=== PATIENT | female | born 1985 | race Caucasian/White ===

== ENCOUNTER 2017-04-12 16:01 | Emergency (ER) | payer OTHER ==
--- NOTE | 2017-04-12 17:03 | PDOC ---
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
[2017-04-12 17:08] VITALS: BP 121/50; PULSE 73; TEMP 98; BMI 41.5
[2017-04-12 18:14] LABS: BASO % 0.4 % (0-2.0); EOS % 1.7 % (0-4.5); HEMATOCRIT 40.4 % (32.4-45.2); HEMOGLOBIN 13.5 GM/dL (10.7-15.3); LYMPH % 35.3 % (8-40); MCHC 33.5 g/dl (32.0-36.0); MEAN CELL VOLUME 86.7 fl (80-96); MEAN PLT VOLUME 8.4 fl (7.5-11.1); MONO % 11.4 % (3.8-10.2); NEUT % 51.2 % (42.8-82.8); PLATELET COUNT 258 K/MM3 (134-434); RBC 4.66 M/mm3 (3.60-5.2); RDW 13.7 % (11.6-15.6)
[2017-04-12 18:18] LABS: URINE APPEARANCE CLOUDY; URINE BILIRUBIN NEGATIVE (NEGATIVE); URINE BLOOD 3+ (NEGATIVE); URINE COLOR YELLOW; URINE GLUCOSE (UA) NEGATIVE (NEGATIVE); URINE KETONE TRACE (NEGATIVE); URINE LEUK ESTERASE NEGATIVE (NEGATIVE); URINE NITRITE NEGATIVE (NEGATIVE)
[2017-04-12 18:23] LABS: URINE PROTEIN 1+ (NEGATIVE)
--- NOTE | 2017-04-12 18:27 | PDOC ---
History of Present Illness - General History Source: Patient, Friend Exam Limitations: No Limitations - History of Present Illness Initial Comments: 04/12/17 18:30 The patient is a 5 week 31 year old female , with a significant past medical history of normal spontaneous vaginal delivery and , who presents to the emergency department with, approx. one day of vaginal bleeding. The patient reports that beginning last night and today she has been having mild vaginal bleeding with little clots. The patient reports she did not have any history of vaginal bleeding during her past pregnancies. 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 She denies recent fevers, chills, headache or dizziness. She denies recent nausea, vomit, diarrhea or constipation. She denies recent dysuria, frequency, urgency. She denies recent chest pain or shortness of breath. Allergies: NKA Past surgical history: <Alfie Mcrae - Last Filed: 04/12/17 18:43> <Aurora Mahmood - Last Filed: 04/12/17 20:12> - General Chief Complaint: Vaginal Bleeding Stated Complaint: VAGINAL BLEEDING Time Seen by Provider: 04/12/17 16:59 Past History <Alfie Mcrae - Last Filed: 04/12/17 18:43> - Past Medical History CVA: No COPD: No DVT: No Dementia: No Diabetes: No Hypercholesterolemia: Yes - Immunization History Immunization Up to Date: Yes - Suicide/Smoking/Psychosocial Hx Smoking History: Never smoked Have you smoked in the past 12 months: No Information on smoking cessation initiated: No Hx Alcohol Use: No Drug/Substance Use Hx: No Substance Use Type: None <Aurora Mahmood - Last Filed: 04/12/17 20:12> - Past Medical History Allergies/Adverse Reactions: Allergies Allergy/AdvReac Type Severity Reaction Status Date / Time No Known Allergies Allergy Verified 04/12/17 17:00 Review of Systems - Review of Systems Comments:: 04/12/17 18:34 GENERAL/CONSTITUTIONAL: No fever or chills. No weakness. HEAD, EYES, EARS, NOSE AND THROAT: No change in vision. No ear pain or discharge. No sore throat. GASTROINTESTINAL: No nausea, vomiting, diarrhea or constipation. GENITOURINARY: +Mild vaginal bleeding. No dysuria, frequency, or change in urination. CARDIOVASCULAR: No chest pain or shortness of breath. RESPIRATORY: No cough, wheezing, or hemoptysis. MUSCULOSKELETAL: No joint or muscle swelling or pain. No neck or back pain. SKIN: No rash NEUROLOGIC: No headache, vertigo, loss of consciousness, or change in strength/ sensation. ENDOCRINE: No increased thirst. No abnormal weight change. HEMATOLOGIC/LYMPHATIC: No anemia, easy bleeding, or history of blood clots. ALLERGIC/IMMUNOLOGIC: No hives or skin allergy. <Alfie Mcrae - Last Filed: 04/12/17 18:43> *Physical Exam - Vital Signs Last Vital Signs Temp Pulse Resp BP Pulse Ox 98.0 F 73 16 121/50 98 04/12/17 17:00 04/12/17 17:00 04/12/17 17:00 04/12/17 17:00 04/12/17 17:00 - Physical Exam Comments: 04/12/17 18:35 Constitutional: Awake, alert, oriented. No acute distress. Head: Normocephalic. Atraumatic Eyes: PERRL. EOMI. Conjunctivae are not pale. ENT: Mucous membranes are moist and intact. Posterior pharynx without exudates or erythema. Uvula midline. Neck: Supple. Full ROM. No lymphadenopathy. Cardiovascular: Regular rate. Regular rhythm. S1, S2 regular. Distal pulses are 2+ and symmetric. Pulmonary/Chest: No evidence of respiratory distress. Clear to auscultation bilaterally No wheezing, rales or rhonchi. Abdominal: +Suprapubic tenderness. Soft and non-distended. No rebound, guarding or rigidity. No organomegaly. No palpable masses. Good bowel sounds. Pelvic: +Blood in valut. No clots. +Minimal blood from cervix. No cmt or adnexal tenderness. Back: No CVA tenderness. Musculoskeletal: No edema. No cyanosis. No clubbing. Full range of motion in all extremities. Nocalf tenderness. Radial/pedal pulses are intact and 2+ bilaterally Skin: Skin is warm and dry. No petechiae. No purpura. Neurological: Alert and oriented to person, place, and time. Cranial nerves II -XII are grossly intact. Normal speech. Strength is grossly symmetric. No sensory deficits. Psychiatric: Good eye contact. Normal interaction, affect and behavior. <Alfie Mcrae - Last Filed: 04/12/17 18:43> - Vital Signs Last Vital Signs Temp Pulse Resp BP Pulse Ox 98.0 F 73 16 121/50 98 04/12/17 17:00 04/12/17 17:00 04/12/17 17:00 04/12/17 17:00 04/12/17 17:00 <Aurora Mahmood - Last Filed: 04/12/17 20:12> ED Treatment Course - LABORATORY CBC & Chemistry Diagram: 04/12/17 17:55 04/12/17 17:55 - ADDITIONAL ORDERS Additional order review: Laboratory Results 04/12/17 17:55 Urine Color Yellow Urine Appearance Cloudy Urine pH 5.0 Ur Specific [place] 1.029 Urine Protein 1+ H Urine Glucose (UA) Negative Urine Ketones Trace H Urine Blood 3+ H Urine Nitrite Negative Urine Bilirubin Negative Urine Urobilinogen 2.0 H Ur Leukocyte Esterase Negative 04/12/17 17:55 RBC 4.66 MCV 86.7 MCHC 33.5 RDW 13.7 MPV 8.4 Neutrophils % 51.2 Lymphocytes % 35.3 Monocytes % 11.4 H Eosinophils % 1.7 Basophils % 0.4 <Alfie Mcrae - Last Filed: 04/12/17 18:43> - LABORATORY CBC & Chemistry Diagram: 04/12/17 17:55 04/12/17 17:55 - ADDITIONAL ORDERS Additional order review: Laboratory Results 04/12/17 17:55 Urine Color Yellow Urine Appearance Cloudy Urine pH 5.0 Ur Specific [place] 1.029 Urine Protein 1+ H Urine Glucose (UA) Negative Urine Ketones Trace H Urine Blood 3+ H Urine Nitrite Negative Urine Bilirubin Negative Urine Urobilinogen 2.0 H Ur Leukocyte Esterase Negative 04/12/17 17:55 RBC 4.66 MCV 86.7 MCHC 33.5 RDW 13.7 MPV 8.4 Neutrophils % 51.2 Lymphocytes % 35.3 Monocytes % 11.4 H Eosinophils % 1.7 Basophils % 0.4 <Aurora Mahmood - Last Filed: 04/12/17 20:12> Medical Decision Making - Medical Decision Making 04/12/17 18:26 a/p: 31yo female with vaginal bleeding since last night - worsening today - at about 5 weeks -will start threatened ab workup -labs, type and screen, tv u/s -nontoxic appearing. -will monitor and reassess -suprapubic discomfort - ua 04/12/17 20:10 re-eval: pt states feeling better discussed lab and imaging results discussed beta hcg and ultrasound showing gestational sac without pole discussed this could be seen in early vs spontaneous ab discussed that the patient needs a repeat beta hcg in 48 hours discussed heavy bleeding and all reasons to return to the ED discussed need for repeat pelvic u/s in 1 week discussed need for follow up with ENTRY LEVEL DRAFTER at the clinic discussed vitamins pt stable for d/c to home type and screen: O+ <Aurora Mahmood - Last Filed: 04/12/17 20:12> *DC/Admit/Observation/Transfer - Attestations Scribe Attestion: 04/12/17 18:36 Documentation prepared by Alfie Mcrae, acting as phlebotomist medical lab assistant for Aurora Mahmood DO. <Alfie Mcrae - Last Filed: 04/12/17 18:43> - Discharge Dispostion Admit: No - Attestations Physician Attestion: 04/12/17 20:04 I, Dr. Aurora Mahmood, , attest that this document has been prepared under my direction and personally reviewed by me in its entirety. I further attest, that it accurately reflects all work, treatment, procedures and medical decision -making performed by me. <Aurora Mahmood - Last Filed: 04/12/17 20:12> Diagnosis at time of Disposition: Vaginal bleeding during , Threatened - Discharge Dispostion Disposition: HOME Condition at time of disposition: Stable - Referrals Referrals: Dennis Sanchez MD [Staff Physician] - - Patient Instructions Printed Discharge Instructions: DI for Threatened Additional Instructions: Please buy and start taking vitamins. Your Beta HCG was 529 today. Your ultrasound showed a gestation sac without a pole. Please have your beta hcg repeated here at [facility] in 48 hrs. Please make an appointment to see your ENTRY LEVEL DRAFTER. Please return to the ED if the bleeding worsens or your have any concerns. Please practice pelvic rest as discussed. - Post Discharge Activity Forms/Work/School Notes: Back to Work
[2017-04-12 18:28] LABS: EPI CELLS RARE /HPF (FEW); URINE BACTERIA RARE /hpf (NONE SEEN); URINE MUCUS RARE
[2017-04-12 18:55] LABS: ALBUMIN 3.9 g/dl (3.4-5.0); ANION GAP 6 (8-16); BILIRUBIN,TOTAL 0.3 mg/dL (0.2-1.0); BLOOD UREA NITROGEN 14 mg/dL (7-18); CALCIUM 8.5 mg/dL (8.5-10.1); CHLORIDE 105 mmol/L (98-107); CO2 27 mmol/L (21-32); CREATININE 0.6 mg/dL (0.55-1.02); GLUCOSE,RANDOM 77 mg/dL (74-106); POTASSIUM 3.7 mmol/L (3.5-5.1); SGOT/AST 12 U/L (15-37); SGPT/ALT 28 U/L (12-78); SODIUM 138 mmol/L (136-145); TOT PROT 7.9 g/dl (6.4-8.2)
[2017-04-12 18:57] LABS: ALK PHOS 68 U/L (45-117)
== END 2017-04-12 20:32 | disposition home or self-care (01) ==
LOC: JER 16:01
DX: O26.891 Other specified pregnancy related conditions, first trimester (principal); O20.0 Threatened abortion; Z3A.01 Less than 8 weeks gestation of pregnancy
CPT/HCPCS: 36415; 76817-TC; 80053; 81003; 81015; 84702; 85025; 86850; 86900; 86901; 87086; 99283-25

== ENCOUNTER 2017-04-14 10:44 | Emergency (ER) | payer OTHER ==
[2017-04-14 10:51] VITALS: BMI 25.6
--- NOTE | 2017-04-14 11:30 | PDOC ---
History of Present Illness - General Chief Complaint: [facility] [place] Stated Complaint: REVISIT Time Seen by Provider: 04/14/17 11:03 History Source: Patient Exam Limitations: No Limitations - History of Present Illness Initial Comments: 04/14/17 11:59 Return for repeat beta hCG. Was seen here 2 days ago for abdominal pain and bleeding. Was known 5 weeks again spotting 2 days before that. Found to have a beta hCG of 539, and endometrial sac in the canal possibly representing an ectopic . Patient reports has less pain however still has some pain in her left lower flank, no bleeding, no fevers . 04/14/17 12:02 04/14/17 12:03 Timing/Duration: unsure Severity: mild Associated Symptoms: reports: denies symptoms Past History - Travel Traveled outside of the country in the last 30 days: No Close contact w/someone who was outside of country & ill: No - Past Medical History Allergies/Adverse Reactions: Allergies Allergy/AdvReac Type Severity Reaction Status Date / Time No Known Allergies Allergy Verified 04/14/17 10:47 Home Medications: Ambulatory Orders NK [No Known Home Medication] 04/14/17 CVA: No COPD: No DVT: No Dementia: No Diabetes: No Hypercholesterolemia: Yes - Immunization History Immunization Up to Date: Yes - Suicide/Smoking/Psychosocial Hx Smoking History: Never smoked Have you smoked in the past 12 months: No Hx Alcohol Use: No Drug/Substance Use Hx: No Substance Use Type: None Review of Systems - Review of Systems Able to Perform ROS?: Yes Is the patient limited Citizen [place] proficient: Yes Constitutional: Yes: Symptoms Reported, See HPI, Malaise. No: Fever HEENTM: Yes: See HPI. No: Symptoms Reported Respiratory: No: Symptoms reported : Yes: See HPI. No: Symptoms Reported Musculoskeletal: Yes: See HPI. No: Symptoms Reported All Other Systems: Reviewed and Negative *Physical Exam - Vital Signs Last Vital Signs Temp Pulse Resp BP Pulse Ox 98.4 F 70 20 117/70 98 04/14/17 10:47 04/14/17 10:47 04/14/17 10:47 04/14/17 10:47 04/14/17 10:47 - Physical Exam General Appearance: Yes: Nourished, Appropriately Dressed. No: Apparent Distress HEENT: positive: KAVIN, Normal ENT Inspection, TMs Normal, Pharynx Normal Neck: positive: Supple. negative: Tender Respiratory/Chest: positive: Lungs Clear, Normal Breath Sounds Gastrointestinal/Abdominal: positive: Normal Bowel Sounds, Soft. negative: Tender, Distended, Guarding, Rebound Musculoskeletal: positive: Normal Inspection, CVA Tenderness Extremity: positive: Normal Capillary Refill, Normal Range of Motion. negative : Tender Integumentary: positive: Normal Color, Dry, Warm, Pale Neurologic: positive: assessment technician II-XII NML intact, Fully Oriented, Alert, Normal Mood/ Affect, Normal Response, Motor Strength /5 Medical Decision Making - Medical Decision Making 04/14/17 12:55 We'll repeat beta hCG, and obtain repeat ultrasound however patient appears nontoxic, afebrile, with no vaginal bleeding. Due to the reports from first ultrasound will be concerned about worsening ectopic, will review repeat ultrasound and transfer patient to main emergency department for further treatment as indicated after ultrasound reports revealed. Case turned over to Alexandra Theodore NP. Updated to plan 04/14/17 15:26 *DC/Admit/Observation/Transfer Diagnosis at time of Disposition: Threatened , Vaginal bleeding - Discharge Dispostion Disposition: HOME Condition at time of disposition: Stable Admit: No - Referrals Referrals: Kimi Rhoades MD [Staff Physician] - - Patient Instructions Additional Instructions: If any increased bleeding, increased pain, fever, or any other concerns return immediately to emergency room please make sure to follow-up in 2 days. - Post Discharge Activity Forms/Work/School Notes: Back to Work
--- NOTE | 2017-04-14 13:21 | PDOC ---
*Physical Exam - Vital Signs Last Vital Signs Temp Pulse Resp BP Pulse Ox 98.4 F 70 20 117/70 98 04/14/17 10:47 04/14/17 10:47 04/14/17 10:47 04/14/17 10:47 04/14/17 10:47 - Physical Exam General Appearance: Yes: Appropriately Dressed. No: Apparent Distress Respiratory/Chest: positive: Lungs Clear, Normal Breath Sounds Cardiovascular: positive: Regular Rhythm, Regular Rate ED Treatment Course - ADDITIONAL ORDERS Additional order review: Laboratory Results 04/14/17 11:35 Beta HCG, Quant 485.7 Medical Decision Making - Medical Decision Making 04/14/17 13:20 I have received report from Antonio AUDITING CODER regarding this patient. Pt's initial chief complaint: [Vaginal bleeding, abdominal pain r/o ectopic] Pt's work up completed prior to sign out: [ Mela, US] Pt treatment given from prior staff: None Pt plan to be completed: [Awaiting US results] Dispo: [ Pending] 04/14/17 14:21 Repeat ultrasound in comparison to prior ultrasound study of 04/12/2017 there is no longer visualization of 0.3 cm fluid structure within the endometrial canal. Current beta-hCG is 485. I have discussed case with Dr. Rhoades from OB. Recommended no further intervention at this time. Strict follow-up in 2 days for repeat beta and ultrasound, Patient has an appointment on Sunday at the clinic to follow-up., Patient denies any pain, prior to discharge. *DC/Admit/Observation/Transfer Diagnosis at time of Disposition: Threatened , Vaginal bleeding - Discharge Dispostion Disposition: HOME Condition at time of disposition: Stable Admit: No - Referrals Referrals: Kimi Rhoades MD [Staff Physician] - - Patient Instructions Additional Instructions: If any increased bleeding, increased pain, fever, or any other concerns return immediately to emergency room please make sure to follow-up in 2 days. - Post Discharge Activity Forms/Work/School Notes: Back to Work
[2017-04-14 14:59] VITALS: BP 100/68; PULSE 78; TEMP 97.5
== END 2017-04-14 15:00 | disposition home or self-care (01) ==
LOC: JER 10:44 → JERFT 10:44 → JER 15:00
DX: O26.891 Other specified pregnancy related conditions, first trimester (principal); O20.0 Threatened abortion; Z3A.01 Less than 8 weeks gestation of pregnancy
CPT/HCPCS: 36415; 76817-TC; 84702; 99283-25

== ENCOUNTER 2023-01-26 15:03 | Inpatient (IN) | payer OTHER ==
[2023-01-26] MEDS ORDERED: AMPICILLIN SODIUM 2 GM VIAL ONE (15:54)
[2023-01-26 16:11] VITALS: BMI 31.5
[2023-01-26] MEDS ORDERED: ELECTROLYTE-148 SOLN 1,000 ML IV SCH (16:30)
[2023-01-26] MEDS ORDERED: AMPICILLIN SODIUM 2 GM VIAL IVPB ONE (16:30)
[2023-01-26 16:55] LABS: BASO % 0.1 % (0-2.0); EOS % 0.9 % (0-4.5); HEMATOCRIT 38.1 % (32.4-45.2); HEMOGLOBIN 12.8 GM/dL (10.7-15.3); LYMPH % 24.7 % (8-40); MCH 28.2 pg (25.7-33.7); MCHC 33.7 g/dl (32.0-36.0); MEAN CELL VOLUME 83.7 fl (80-96); MEAN PLT VOLUME 9.4 fl (7.5-11.1); MONO % 7.7 % (3.8-10.2); NEUT % 66.6 % (42.8-82.8); PLATELET COUNT 243 10^3/uL (134-434); RBC 4.55 M/mm3 (3.60-5.2); RDW 15.4 % (11.6-15.6)
[2023-01-26 17:08] LABS: INR 0.95 (0.83-1.09)
[2023-01-26 17:11] LABS: ACTIVATED PTT 24.9 SECONDS (25.2-36.5)
[2023-01-26 17:16] LABS: POTASSIUM 3.8 mmol/L (3.5-5.1)
[2023-01-26 17:17] LABS: BLOOD UREA NITROGEN 10.1 mg/dL (7-18); CALCIUM 8.7 mg/dL (8.5-10.1)
[2023-01-26 17:21] LABS: CREATININE 0.5 mg/dL (0.55-1.3)
[2023-01-26] MEDS ORDERED: OXYTOCIN 30 UNITS in 0.9% NS 30 UNIT/500 ML INFUS.BAG IVPB SCH (19:00)
[2023-01-26] MEDS ORDERED: AMPICILLIN SODIUM 1 GM VIAL ONE (20:03)
[2023-01-26] MEDS: AMPICILLIN - 1 GM in SODIUM CHLORIDE 100 ML IVPB SCH (20:05)
[2023-01-26] MEDS ORDERED: OXYTOCIN 30 UNITS in 0.9% NS 30 UNIT/500 ML INFUS.BAG IVPB ONE (20:49)
[2023-01-26 22:47] LABS: HIV INTERPRETATION NEGATIVE (NEGATIVE)
[2023-01-27] MEDS ORDERED: AMPICILLIN SODIUM 1 GM VIAL ONE (00:01)
[2023-01-27] MEDS: AMPICILLIN - 1 GM in SODIUM CHLORIDE 100 ML IVPB SCH (00:05)
[2023-01-27] MEDS ORDERED: FENTANYL/BUPIVACAINE/NS/PF - PCEA - 50 ML DISP.SYRIN EP ONE (00:43)
[2023-01-27] MEDS ORDERED: FENTANYL/BUPIVACAINE/NS/PF - PCEA - 50 ML DISP.SYRIN EP SCH (00:45)
[2023-01-27] MEDS ORDERED: NALOXONE HCL 0.4 MG/ML VIAL IVPUSH PRN (00:45)
[2023-01-27] MEDS ORDERED: FENTANYL CITRATE/PF 50 MCG/ML VIAL ONE (00:50)
[2023-01-27] MEDS ORDERED: BUPIVACAINE HCL/PF 0.25% (2.5MG/ML) 10 ML VIAL ONE (00:51)
[2023-01-27] MEDS ORDERED: LIDOCAINE HCL/EPINEPHRINE/PF 10 ML VIAL ONE (00:54)
[2023-01-27] MEDS ORDERED: LIDOCAINE HCL 1% PRESERVATIVE FREE - 30ML VIAL ONE (01:02)
[2023-01-27] MEDS ORDERED: OXYTOCIN 20 UNITS in 0.9% NS 20 UNIT/1,000 ML INFUS.BAG IV ONE (01:02)
[2023-01-27] MEDS ORDERED: WITCH HAZEL 50% (TUCKS) 40 PAD/JAR PAD TP PRN (01:28)
[2023-01-27] MEDS ORDERED: BISACODYL 10 MG SUPP.RECT RC PRN (01:28)
[2023-01-27] MEDS ORDERED: BENZOCAINE 20% 57 GM BOTTLE TP PRN (01:28)
[2023-01-27] MEDS ORDERED: METHYLERGONOVINE MALEATE 0.2 MG/1 ML AMP IM PRN (01:28)
[2023-01-27] MEDS ORDERED: ACETAMINOPHEN 325 MG TABLET (FP) PO PRN (01:28)
[2023-01-27] MEDS ORDERED: BENZOCAINE 28 GM HEMORRHOIDAL OINTMENT TP PRN (01:28)
[2023-01-27] MEDS ORDERED: OXYTOCIN 20 UNITS in 0.9% NS 20 UNIT/1,000 ML INFUS.BAG IV SCH (01:30)
[2023-01-27] MEDS: IBUPROFEN 600 MG TABLET (FP) PO PRN ×2 (03:17→09:50)
[2023-01-27] MEDS: PRENATAL VITAMINS W/ FOLIC ACID TABLET (FP) PO SCH (09:49)
[2023-01-27 12:31] VITALS: RESP 18
[2023-01-28 08:21] LABS: BASO % 0.3 % (0-2.0); EOS % 1.7 % (0-4.5); HEMATOCRIT 37.9 % (32.4-45.2); HEMOGLOBIN 12.5 GM/dL (10.7-15.3); LYMPH % 35.2 % (8-40); MEAN CELL VOLUME 84.9 fl (80-96); MEAN PLT VOLUME 9.3 fl (7.5-11.1); MONO % 9.6 % (3.8-10.2); NEUT % 53.2 % (42.8-82.8); PLATELET COUNT 224 10^3/uL (134-434); RBC 4.46 M/mm3 (3.60-5.2); RDW 15.5 % (11.6-15.6); WHITE BLOOD COUNT 9.5 K/mm3 (4.0-10.0)
[2023-01-28] MEDS: PRENATAL VITAMINS W/ FOLIC ACID TABLET (FP) PO SCH (09:52)
[2023-01-28] MEDS: IBUPROFEN 600 MG TABLET (FP) PO PRN (09:52)
[2023-01-28 10:07] VITALS: TEMP 98.2
[2023-01-28 20:49] VITALS: BP 119/84; PULSE 76
[2023-01-28] MEDS ORDERED: SENNOSIDES/DOCUSATE COMBO (SENNA PLUS) TABLET (UD) PO PRN (22:00)
== END 2023-01-28 20:45 | disposition home or self-care (01) | DRG 560 ==
LOC: JLDR 15:03 → J3W 01-27 02:39
PROVIDERS: ADMIT Obstetrics & Gynecology; ATTEND Obstetrics & Gynecology
PROC: 10E0XZZ Delivery of Products of Conception, External Approach (ICD-10-PCS; principal; 2023-01-26)
DX: O60.14X0 Preterm labor third trimester with preterm delivery third trimester, not applicable or unspecified (principal); O24.420 Gestational diabetes mellitus in childbirth, diet controlled; O34.211 Maternal care for low transverse scar from previous cesarean delivery; O69.81X0 Labor and delivery complicated by cord around neck, without compression, not applicable or unspecified; Z3A.34 34 weeks gestation of pregnancy; Z37.0 Single live birth
CPT/HCPCS: 36415; 80048; 82962; 85025; 85610; 85730; 86780; 86850; 86900; 86901; 87389

== ENCOUNTER 2023-01-30 | Observation (INO) | payer OTHER ==
[2023-01-30] MEDS ORDERED: SODIUM CHLORIDE 0.9% 500 ML INFUS.BAG IV ONE (01:42)
[2023-01-30] MEDS ORDERED: FAMOTIDINE 20 MG/50 ML IVPB 20 MG/50 ML MG IVPB ONE ×2 (01:42→02:05)
[2023-01-30] MEDS ORDERED: ACETAMINOPHEN 1000 MG/100 ML BAG IVPB ONE (01:42)
[2023-01-30] MEDS ORDERED: MAG HYDROX/AL HYDROX/SIMETH 30 ML UNIT-DOSE CUP PO ONE (01:42)
[2023-01-30] MEDS ORDERED: MAG HYDROX/AL HYDROX/SIMETH 30 ML UNIT-DOSE CUP ONE (02:05)
[2023-01-30] MEDS ORDERED: ACETAMINOPHEN INJECTION 100 ML IVPB ONE (02:05)
[2023-01-30 02:10] LABS: BASO % 0.7 % (0-2.0); EOS % 1.2 % (0-4.5); HEMATOCRIT 40.6 % (32.4-45.2); HEMOGLOBIN 13.4 GM/dL (10.7-15.3); LYMPH % 12.4 % (8-40); MCH 28.2 pg (25.7-33.7); MEAN CELL VOLUME 85.5 fl (80-96); MONO % 5.2 % (3.8-10.2); NEUT % 80.5 % (42.8-82.8); PLATELET COUNT 245 10^3/uL (134-434); RBC 4.75 M/mm3 (3.60-5.2); RDW 15.5 % (11.6-15.6); WHITE BLOOD COUNT 11.5 K/mm3 (4.0-10.0)
[2023-01-30 02:29] LABS: POTASSIUM 3.7 mmol/L (3.5-5.1)
[2023-01-30 02:31] LABS: ALBUMIN 2.9 g/dl (3.4-5.0); BLOOD UREA NITROGEN 11.9 mg/dL (7-18); CALCIUM 8.7 mg/dL (8.5-10.1)
[2023-01-30 02:34] LABS: CREATININE 0.7 mg/dL (0.55-1.3)
[2023-01-30 02:36] LABS: BILIRUBIN,TOTAL 0.2 mg/dL (0.2-1); TOT PROT 7.3 g/dl (6.4-8.2)
[2023-01-30 03:32] LABS: EPI CELLS 14 /uL (0-25.1); HYALINE CASTS 0 /uL (0-3.1); PH,URINE 5.5 (5.0-8.0); URINE APPEARANCE CLEAR; URINE BACTERIA 28 /uL (0-1359); URINE BILIRUBIN NEGATIVE (NEGATIVE); URINE COLOR YELLOW; URINE GLUCOSE (UA) NEGATIVE (NEGATIVE); URINE KETONE NEGATIVE (NEGATIVE); URINE LEUK ESTERASE NEGATIVE (NEGATIVE); URINE NITRITE NEGATIVE (NEGATIVE); URINE PROTEIN NEGATIVE (NEGATIVE); URINE RBC 139 /uL (0-23.9); URINE UROBILINOGEN 0.2 mg/dL (0.2-1.0); URINE WBC 12 /uL (0-25.8)
[2023-01-30 10:00] VITALS: BMI 30.9
[2023-01-30] MEDS ORDERED: ACETAMINOPHEN 325 MG TABLET (FP) PO PRN (11:37)
[2023-01-30] MEDS ORDERED: IBUPROFEN 400 MG TABLET (FP) PO PRN (11:37)
[2023-01-30] MEDS ORDERED: MAG HYDROX/AL HYDROX/SIMETH 30 ML UNIT-DOSE CUP PO PRN (11:38)
[2023-01-30 14:16] VITALS: BP 124/78; PULSE 85; RESP 18; TEMP 98
== END 2023-01-30 18:22 | disposition home or self-care (01) ==
LOC: JER → INTOOBSV 06:18 → UNDOADMOB 06:18 → JERBED 06:18 → J4W 09:05 → JERBED 11:37
PROVIDERS: ADMIT Internal Medicine; ATTEND Internal Medicine
PROC: 3E033NZ Introduction of Analgesics, Hypnotics, Sedatives into Peripheral Vein, Percutaneous Approach (ICD-10-PCS; principal; 2023-01-30)
PROC: 3E033GC Introduction of Other Therapeutic Substance into Peripheral Vein, Percutaneous Approach (ICD-10-PCS; 2023-01-30)
PROC: 3E0337Z Introduction of Electrolytic and Water Balance Substance into Peripheral Vein, Percutaneous Approach (ICD-10-PCS; 2023-01-30)
DX: R07.9 Chest pain, unspecified (principal); R77.8 Other specified abnormalities of plasma proteins; R79.9 Abnormal finding of blood chemistry, unspecified; Z86.32 Personal history of gestational diabetes; O90.89 Other complications of the puerperium, not elsewhere classified
CPT/HCPCS: 0241U-QW; 36415; 71046-TC-FY; 71275-TC; 80053; 81003; 83735; 84484; 85025; 85379; 87086; 93005; 93010; 93306-TC; 96365; 96375; 99285-25; G0378

== ENCOUNTER 2023-06-20 04:08 | Day surgery (SDC) | payer OTHER ==
[2023-06-18 10:05] VITALS: BMI 30.7
[2023-06-20] MEDS ORDERED: ceFAZolin SODIUM 1 GM VIAL ONE (06:31)
[2023-06-20 06:44] VITALS: BP 120/82; PULSE 71; RESP 18; TEMP 97.8
[2023-06-20] MEDS ORDERED: LIDOCAINE 1%/EPI 1:100000 (20 ML MULTI DOSE VIAL) ONE (07:12)
[2023-06-20] MEDS ORDERED: CEFAZOLIN SODIUM 2 GM in DEXTROSE 5%-WATER 100 ML IVPB ONE (07:30)
== END 2023-06-20 08:12 | disposition home or self-care (01) ==
LOC: JASU-SURG 04:08
PROVIDERS: ATTEND Specialist
DX: Z53.8 Procedure and treatment not carried out for other reasons (principal)
CPT/HCPCS: 81025